=== PATIENT | male | born 1950 | race Caucasian/White ===

== ENCOUNTER 2024-02-03 07:40 | Emergency (ER) | payer MEDICARE ==
[~2024-02-03] VITALS: Ht 175.3 cm; Wt 75.0 kg
[2024-02-03 07:48] VITALS: TEMP 97.8
[2024-02-03 09:52] LABS: COLLECTION METHOD CLEAN CATCH
[2024-02-03 09:58] LABS: BASO % 0.9 % (0.0-2.0); EOS # 0.1 K/mm3 (0.0-0.7); EOS % 2.1 % (0.0-4.0); GRAN # 2.6 K/mm3 (1.4-6.5); GRAN % 59.6 % (42.2-75.2); HEMATOCRIT 48.1 % (42.0-52.0); HEMOGLOBIN 17.1 g/dl (13.5-18.0); LYMPH # 1.3 K/mm3 (1.2-3.4); LYMPH % 30.2 % (20.0-51.0); MEAN CELL VOLUME 97 fl (80.0-100.0); MEAN CORPUSCULAR HEMOGLOBIN 35 pg (27-31); MEAN CORPUSCULAR HGB CONC 36 g/dl (33.0-37.0); MEAN PLATELET VOLUME 9.6 fl (7.4-10.4); MONO # 0.3 K/mm3 (0.1-0.6); PH 5.5 (5.0-8.5); PLATELET COUNT 149 K/mm3 (130-400); RED BLOOD COUNT 4.95 M/mm3 (4.20-5.60); REDCELL DISTRIBUTION WIDTH-CV 13.2 % (11.5-14.5); URINE APPEARANCE CLEAR (CLEAR/HAZY); URINE BLOOD NEGATIVE (NEGATIVE); URINE COLOR YELLOW (YELLOW); URINE GLUCOSE NEGATIVE (NEGATIVE); URINE KETONE NEGATIVE (NEGATIVE); URINE NITRATE NEGATIVE (NEGATIVE); URINE PROTEIN(semi-quant) NEGATIVE (NEGATIVE); URINE UROBILINOGEN 0.2 E.U/dL (0.2-1.0)
[2024-02-03 10:25] LABS: BILIRUBIN,TOTAL 0.5 mg/dL (0.2-1.2); CALCIUM 9.1 mg/dL (8.4-10.2); CREATININE, serum 0.82 mg/dL (0.72-1.25); POTASSIUM 4.1 mEq/L (3.5-4.5); TOTAL PROTEIN 7.3 g/dl (6.2-8.1)
[2024-02-03 10:34] LABS: TROPONIN-I 0.032 ng/mL (0.00-0.033)
[2024-02-03 11:44] VITALS: BP 165/89; PULSE 62
== END 2024-02-03 12:17 | disposition home or self-care (01) ==
LOC: COL.ER 07:40
PROVIDERS: Family Medicine
DX: S51.011A Laceration without foreign body of right elbow, initial encounter (principal); S01.01XA Laceration without foreign body of scalp, initial encounter; W01.198A Fall on same level from slipping, tripping and stumbling with subsequent striking against other object, initial encounter